=== PATIENT | female | born 1955 | race Caucasian/White ===

== ENCOUNTER 2017-08-02 08:45 | Day surgery (SDC) | payer BC, SELFPAY ==
--- NOTE | 2017-08-02 | PATH_ITS ---
[facility] Accession Number: [id number] . 01 Material submitted: . COLON POLYP AT 80CM . 02 Diagnosis: Biopsy, Colon Polyp At 80 CM: Tubular adenoma involving two biopsy fragments. [facility]/08/03/2017 . 02 Electronically signed: . Ernie Suarez MD, Pathologist NPI- [id number] . 01 Gross description: . Received in one formalin-filled container, labeled with the patient's name, labeled colon polyp at 80 cm, are three 0.2-0.3 cm portions of tissue, entirely submitted in one cassette. ([id number]) /FRR . 02 Pathologist provided ICD-10: D12.3 . 02 CPT . 981292 Performed at: 01 [facility] [address] [address], [place], [place] [id number] MD Aren Burns MD Phone: [phone] Performed at: 02 [facility] [address] [place], [place] [id number] MD Loco Farr MD Phone: [phone]
[2017-08-02 09:12] VITALS: BP 131/73; PULSE 60; RESP 20; TEMP 36.2; O2SAT 97
[2017-08-02] MEDS: SODIUM CHLORIDE 0.9% 1,000 ML 200 ML IV (09:45)
[2017-08-02] MEDS: ONDANSETRON 4 MG/2 ML INJ IV (10:35)
--- NOTE | 2017-08-02 10:56 | P.HP_ITS ---
History of Present Illness Date Patient Seen: 08/02/17 Time Patient Seen: 10:54 Chief complaint: [id number] COLONOSCOPY W/HEMORRHOID BANDING Narrative: Dunia is a very pleasant lady who is well known to me from prior visits. She has had some recent episodes of rectal bleeding that she attributes to a known history of hemorrhoids and rectal prolapse. Additionally , she has a history of colon polyps and it is time for her 5 year colonoscopy. Patient History Family & Social History Family History: Reviewed 08/02/17 by Mra Ferrell MD Social History: household members spouse Meds Home Medications Medication Instructions Recorded Confirmed Type ACETAMINOPHEN (#TYLENOL ARTHRITIS) 650 PO BID #0 05/31/12 History Fish Oil (#OMEGA-3) 2 tab PO QDAY #0 05/31/12 History OMEPRAZOLE 20 mg PO BID #0 05/31/12 History [VITAMIN C] #0 05/31/12 History [ZYRTEC] 10 mg PO QDAY #0 05/31/12 History doxazosin [Cardura] 8 mg PO Q DAY #0 05/31/12 History lisinopril 10 PO BID #0 05/31/12 History metoprolol tartrate [Lopressor] 50 mg PO BID #0 05/31/12 History naproxen sodium [Aleve] 220 mg PO PRN #0 05/31/12 History simvastatin [Zocor] 20 mg PO Q DAY #0 05/31/12 History promethazine-codeine 5 ml PO Q6HP PRN #0 12/15/15 History ondansetron [Zofran ODT] 4 mg SUBLINGUAL Q6HP PRN #20 odt 01/12/16 Rx oxycodone-acetaminophen [Percocet] 1 - 2 tab PO Q6HP PRN #30 tab 01/12/16 Rx diltiazem HCl 300 mg PO DAILY 08/02/17 08/02/17 History metformin 1,000 mg PO QAM 08/02/17 08/02/17 History metformin 1,500 mg PO BEDTIME 08/02/17 08/02/17 History rivaroxaban [Xarelto] 20 mg PO DAILY 08/02/17 08/02/17 History Allergies Allergy/AdvReac Type Severity Reaction Status Date / Time adhesive Allergy Severe ALLERGY TO Verified 08/02/17 09:47 TAPE PAPER/SILK TAPE OK fentanyl Allergy Severe VOMITING Verified 08/02/17 09:47 hydromorphone Allergy Severe VOMITING Verified 08/02/17 09:47 Sulfa (Sulfonamide Allergy Severe RASH Verified 08/02/17 09:47 Antibiotics) amoxicillin [From AUGMENTIN] AdvReac Severe DIARRHEA, Verified 08/02/17 09:47 SOB, RASH clavulanic acid AdvReac Mild DIARRHEA, Verified 08/02/17 09:47 [From AUGMENTIN] SHORTNESS OF BREATH piroxicam [From FELDENE] AdvReac Mild abd pain Verified 08/02/17 09:47 Review of Systems Review of Systems All systems reviewed & are unremarkable except as noted in HPI and below Exam Vital Signs (past 8 hours): Vital Signs - 8 hr 3 08/02/17 09:12 Temperature 97.1 F L Pulse Rate 60 Respiratory Rate 20 Blood Pressure 131/73 H Pulse Oximetry 97 Pulse Oximetry 97 Oxygen Delivery Method Room Air Narrative Exam Narrative: HEENT: Normocephalic and atraumatic, pupils equal round reactive to light accommodation with anicteric sclera Lungs: Clear bilaterally Heart: Regular rate and rhythm Abdomen: Soft, obese, active bowel sounds. Well-healed abdominal incisions Extremities: Warm and well perfused. 1+ edema bilaterally Assessment & Plan Plan: Assessment/Plan Narrative: We have discussed the risks and benefits of colonoscopy and the patient expressed desire to complete the procedure today
[2017-08-02] MEDS: MIDAZOLAM 5 MG/5 ML VIAL IV (11:17)
[2017-08-02] MEDS: fentaNYL 250 MCG/5 ML INJ IV (11:18)
--- NOTE | 2017-08-02 11:23 | PM.OP.1 ---
Operative Date/Time/Diagnoses - Date of procedure: 08/02/17 Time of procedure: 11:23 Pre-op diagnosis: Personal history of colon polyps Bleeding hemorrhoids Procedure & Clinicians Procedure: Colonoscopy to the cecum with polypectomy x1 Same procedure as scheduled: Yes Indications: Last colonoscopy 5 years ago Surgeon: Mar Ferrell Click Yes if Unassisted: Yes Anesthesia Type: Sedation (Versed 10 mg; fentanyl 200 mcg) Operative Notes Findings: 1. Adequate prep 2. 3 mm sessile polyp at 80 cm from the anal verge -removed with cold forceps and submitted for pathology 3. Diverticula from the junction of the sigmoid colon and rectum to approximately 50 cm from the anal verge 4. Grade 1 internal hemorrhoids 5. Full danelle of enlarged external hemorrhoids without thrombosis Closure Type: not applicable Specimen(s): none sent Estimated Blood Loss (mL): 1 Procedure in detail: After obtaining informed consent, the patient was brought to the GI suite and placed in the left lateral decubitus position on the examination table. After placement of appropriate monitors, the patient was given incremental doses of Versed and Fentanyl until an appropriate level of sedation was achieved. A time out was held per SCOAP protocol. A digital rectal examination was performed and did not reveal any masses or obstructing lesions. The colonoscope was gently passed into the patient's anus and the entire colon navigated to the level of the cecum with minimal difficulty. Once in the cecum, the scope was withdrawn being sure to go before and beyond all mucosal folds and prominences and get an excellent examination. The findings are noted above. At the level of the rectal vault, the scope was retroflexed and the internal anal canal was examined. The scope was straightened and air aspirated from the colon. The instrument was removed from the patient's body and the procedure was concluded. The patient was allowed to awaken from sedation without difficulty and taken to the post-anesthesia care unit in good condition. Total sedation time 24 min Total withdrawal time 12 min Complications: none Condition: stable Disposition: PACU Plan for aftercare: 1. Discharge to home 2. We will contact you with pathology results 3. Plan for next colonoscopy in 5 years or as clinically indicated
[2017-08-02 11:30] VITALS: BP 104/57; PULSE 60; RESP 20; TEMP 36; O2SAT 93
[2017-08-02 11:35] VITALS: BP 106/60; PULSE 65; RESP 22; O2SAT 95
[2017-08-02 11:41] VITALS: BP 113/68; PULSE 62; RESP 20; TEMP 36.3; O2SAT 95
[2017-08-02 11:52] VITALS: BP 126/72; PULSE 56; RESP 16; TEMP 36.1; O2SAT 92
== END 2017-08-02 12:20 | disposition home or self-care (01) ==
PROVIDERS: PCP Physician Assistant; Visit Provider Surgery
PROC: 0DJD8ZZ Inspection of Lower Intestinal Tract, Via Natural or Artificial Opening Endoscopic (ICD-10-PCS; CPT 45378; principal; 2017-08-02 09:45)
DX: Z12.11 Encounter for screening for malignant neoplasm of colon (principal); K64.0 First degree hemorrhoids; K57.30 Diverticulosis of large intestine without perforation or abscess without bleeding; K64.4 Residual hemorrhoidal skin tags; Z86.010 Personal history of colon polyps; D12.4 Benign neoplasm of descending colon
CPT/HCPCS: 45380; 99152; 99153; J2250; J2405; J3010

== ENCOUNTER → 2018-09-26 15:49 | Outpatient (CLI) | payer BC, SELFPAY ==
--- NOTE | 2018-09-26 | DI.RAD.S_ITS ---
PROCEDURE: XR SHOULDER RT MIN 2V INDICATIONS: RIGHT SHOULDER PAIN TECHNIQUE: 3 views of the shoulder were acquired. COMPARISON: [facility], , SHOULDER MINIMUM 2 VIEW LEFT, 11/28/2013, 11:08. FINDINGS: Bones: No fractures or dislocations. No suspicious bony lesions. Visualized ribs appear intact. Moderate AC joint degeneration. Glenohumeral spurring Soft tissues: No suspicious soft tissue calcifications. IMPRESSION: Degenerative changes as above. No fracture. If the patient's pain or other symptoms persist, consider further evaluation with MRI Dictated by: Erwin Martinez M.D. on 09/26/2018 at 16:56 Approved by: Erwin Martinez M.D. on 09/26/2018 at 16:57
== END ==
PROVIDERS: PCP Physician Assistant; Visit Provider Physician Assistant
DX: M25.511 Pain in right shoulder (principal); M19.011 Primary osteoarthritis, right shoulder
CPT/HCPCS: 73030

== ENCOUNTER → 2019-01-30 13:42 | Outpatient (CLI) | payer BC, SELFPAY | PROVIDERS: PCP Physician Assistant; Visit Provider Physician Assistant Medical | DX: E83.42 Hypomagnesemia (principal) | CPT/HCPCS: 36415; 83735 ==

== ENCOUNTER → 2019-02-19 13:15 | Outpatient (CLI) | payer BC, SELFPAY ==
[2019-02-19 15:17] LABS: Magnesium 1.4 mg/dL (1.6-2.3)
== END ==
PROVIDERS: Family Provider Physician Assistant; PCP Physician Assistant; Visit Provider Physician Assistant Medical
DX: E83.42 Hypomagnesemia (principal)
CPT/HCPCS: 36415; 83735

== ENCOUNTER → 2019-06-24 12:06 | Outpatient (CLI) | payer BC, SELFPAY ==
[2019-06-24 13:02] LABS: Magnesium 1.1 mg/dL (1.6-2.3)
[2019-06-25 10:03] LABS: Add Manual Diff / Slide Review NO; Basophils Absolute Auto 0 /uL (0-100); Basophils Percent Auto 0.4 % (0-2); Eosinophils Absolute Auto 200 /uL (0-450); Eosinophils Percent Auto 2.1 % (2-4); Hematocrit 40.9 % (36-46); Hemoglobin 13.3 g/dL (12.0-16.0); Lymphocytes Absolute Auto 3500 /uL (1100-4500); Lymphocytes Percent Auto 33.5 % (25-40); Mean Corpuscular HGB Conc 32.6 % (30-36); Mean Corpuscular Hemoglobin 29.1 PG (26-34); Mean Corpuscular Volume 89.1 fL (80-100); Monocytes Absolute Auto 800 /uL (0-900); Neutrophils Absolute Auto 5900 /uL (1500-7000); Platelet Count 208 X10^3/uL (150-400); Red Blood Cell Count 4.59 X10^6/uL (4.0-5.2); Red Cell Distribution Width 14.6 % (11.6-14.8); White Blood Cell Count 10.6 X10^3/uL (4.5-11.0)
[2019-06-25 10:05] LABS: Alanine Aminotransferase 39 IU/L (<35); Albumin 3.8 g/dL (3.5-5.0); Albumin Globulin Ratio 1.2 (1.0-2.8); Alkaline Phosphatase 128 U/L (38-126); Aspartate Aminotransferase 46 IU/L (14-36); BUN Creatinine Ratio 28.3 (6-22); Bilirubin Total 0.6 mg/dL (0.2-1.3); Blood Urea Nitrogen 15 mg/dL (7-17); Calcium 9.7 mg/dL (8.4-10.2); Carbon Dioxide 22 mmol/L (22-32); Chloride 101 mmol/L (98-107); Cholesterol 130 mg/dL (140-199); Estimated Glomerular Filt Rate > 60.0 mL/min (>60); Globulin 3.1 g/dL (1.7-4.1); Glucose 306 mg/dL (80-110); HDL Cholesterol 23 mg/dL (40-60); HEMOLYSIS < 15 (0-50); LDL Cholesterol Calculated 54 mg/dL (<100); Potassium 4.5 mmol/L (3.4-5.1); Sodium 137 mmol/L (137-145); Total Protein 6.9 g/dL (6.3-8.2); Triglycerides 267 mg/dL (35-150); Uric Acid 5.8 mg/dL (2.5-6.2)
== END ==
PROVIDERS: Family Provider Physician Assistant; PCP Physician Assistant; Referring Provider Physician Assistant Medical; Visit Provider Physician Assistant Medical
DX: E83.42 Hypomagnesemia (principal)
CPT/HCPCS: 36415; 80053; 80061; 83036; 83735; 84550; 85025

== ENCOUNTER → 2019-09-17 15:34 | Outpatient (CLI) | payer BC, SELFPAY ==
[2019-09-17 16:51] LABS: Hemoglobin A1C% w Est Avg Glu 12.2 % (4.0-6.0)
== END ==
PROVIDERS: Family Provider Physician Assistant; PCP Physician Assistant; Referring Provider Physician Assistant; Visit Provider Physician Assistant
DX: E11.9 Type 2 diabetes mellitus without complications (principal)
CPT/HCPCS: 36415; 83036

== ENCOUNTER → 2019-11-27 13:32 | Outpatient (CLI) | payer BC, SELFPAY ==
[2019-11-27 14:56] LABS: Hemoglobin A1C% w Est Avg Glu 11.7 % (4.0-6.0)
== END ==
PROVIDERS: Family Provider Physician Assistant; PCP Physician Assistant; Referring Provider Physician Assistant; Visit Provider Physician Assistant
DX: E11.9 Type 2 diabetes mellitus without complications (principal)
CPT/HCPCS: 36415; 83036

== ENCOUNTER → 2019-12-25 15:15 | Outpatient (CLI) | payer BC, SELFPAY ==
[2019-12-25 16:54] LABS: Creatinine Urine Random 75.6 mg/dL
[2019-12-25 16:58] LABS: Microalbumi Creatinin Ratio Ur 9.2 ug/mg CR (<30); Microalbumin Urine Random 0.7 mg/dL (0-1.6)
== END ==
PROVIDERS: Family Provider Physician Assistant; PCP Physician Assistant; Referring Provider Nurse Practitioner Family; Visit Provider Nurse Practitioner Family
DX: E11.65 Type 2 diabetes mellitus with hyperglycemia (principal)
CPT/HCPCS: 82043; 82570

== ENCOUNTER → 2020-01-10 12:57 | Outpatient (CLI) | payer BC, SELFPAY ==
[2020-01-10 13:21] LABS: Add Manual Diff / Slide Review NO; Basophils Absolute Auto 100 /uL (0-100); Basophils Percent Auto 0.9 % (0-2); Eosinophils Absolute Auto 200 /uL (0-450); Hematocrit 40.4 % (36-46); Hemoglobin 13.4 g/dL (12.0-16.0); Lymphocytes Absolute Auto 3700 /uL (1100-4500); Lymphocytes Percent Auto 37.3 % (25-40); Mean Corpuscular HGB Conc 33.2 % (30-36); Mean Corpuscular Hemoglobin 29.3 PG (26-34); Mean Corpuscular Volume 88.3 fL (80-100); Monocytes Absolute Auto 900 /uL (0-900); Neutrophils Absolute Auto 5100 /uL (1500-7000); Neutrophils Percent Auto 50.8 % (50-75); Platelet Count 215 X10^3/uL (150-400); Red Blood Cell Count 4.58 X10^6/uL (4.0-5.2)
[2020-01-10 13:28] LABS: Hemoglobin A1C% w Est Avg Glu 9.6 % (4.0-6.0)
[2020-01-10 13:43] LABS: Alanine Aminotransferase 33 IU/L (<35); Albumin 4.3 g/dL (3.5-5.0); Albumin Globulin Ratio 1.3 (1.0-2.8); Alkaline Phosphatase 99 U/L (38-126); Aspartate Aminotransferase 36 IU/L (14-36); BUN Creatinine Ratio 23.7 (6-22); Bilirubin Total 0.5 mg/dL (0.2-1.3); Blood Urea Nitrogen 14 mg/dL (7-17); Calcium 9.6 mg/dL (8.4-10.2); Carbon Dioxide 26 mmol/L (22-32); Chloride 104 mmol/L (98-107); Cholesterol 114 mg/dL (140-199); Estimated Glomerular Filt Rate > 60.0 mL/min (>60); Globulin 3.3 g/dL (1.7-4.1); Glucose 134 mg/dL (80-110); HDL Cholesterol 25 mg/dL (40-60); HEMOLYSIS < 15 (0-50); LDL Cholesterol Calculated 39 mg/dL (<100); Magnesium 1.4 mg/dL (1.6-2.3); Potassium 4.4 mmol/L (3.4-5.1); Sodium 138 mmol/L (137-145); Total Protein 7.6 g/dL (6.3-8.2); Triglycerides 251 mg/dL (35-150)
== END ==
PROVIDERS: Family Provider Physician Assistant; PCP Physician Assistant; Referring Provider Physician Assistant; Visit Provider Physician Assistant
DX: E11.9 Type 2 diabetes mellitus without complications (principal)
CPT/HCPCS: 36415; 80053; 80061; 83036; 83735; 85025

== ENCOUNTER → 2020-05-20 14:38 | Outpatient (CLI) | payer BC, SELFPAY ==
[2020-05-20 16:06] LABS: Add Manual Diff / Slide Review NO; Basophils Absolute Auto 0 /uL (0-100); Basophils Percent Auto 0.4 % (0-2); Eosinophils Absolute Auto 300 /uL (0-450); Eosinophils Percent Auto 3.2 % (2-4); Hematocrit 40.6 % (36-46); Hemoglobin 13.3 g/dL (12.0-16.0); Lymphocytes Absolute Auto 4200 /uL (1100-4500); Lymphocytes Percent Auto 44.9 % (25-40); Mean Corpuscular HGB Conc 32.8 % (30-36); Mean Corpuscular Volume 88.5 fL (80-100); Monocytes Absolute Auto 800 /uL (0-900); Monocytes Percent Auto 8.7 % (3-14); Neutrophils Absolute Auto 4000 /uL (1500-7000); Neutrophils Percent Auto 42.8 % (50-75); Platelet Count 224 X10^3/uL (150-400); Red Blood Cell Count 4.59 X10^6/uL (4.0-5.2); Red Cell Distribution Width 14.5 % (11.6-14.8); White Blood Cell Count 9.3 X10^3/uL (4.5-11.0)
[2020-05-20 16:36] LABS: Alanine Aminotransferase 25 IU/L (<35); Albumin 4.2 g/dL (3.5-5.0); Albumin Globulin Ratio 1.4 (1.0-2.8); Alkaline Phosphatase 99 U/L (38-126); Aspartate Aminotransferase 31 IU/L (14-36); BUN Creatinine Ratio 29.4 (6-22); Bilirubin Total 0.2 mg/dL (0.2-1.3); Blood Urea Nitrogen 20 mg/dL (7-17); Calcium 9.5 mg/dL (8.4-10.2); Carbon Dioxide 26 mmol/L (22-32); Chloride 106 mmol/L (98-107); Estimated Glomerular Filt Rate > 60.0 mL/min (>60); Globulin 3.1 g/dL (1.7-4.1); Glucose 118 mg/dL (80-110); HEMOLYSIS < 15 (0-50); Magnesium 1.4 mg/dL (1.6-2.3); Potassium 4.6 mmol/L (3.4-5.1); Sodium 141 mmol/L (137-145); Total Protein 7.3 g/dL (6.3-8.2)
[2020-05-21 06:41] LABS: Cancer Antigen 27.29 11.5 U/mL (0.0-38.6)
== END ==
PROVIDERS: Family Provider Physician Assistant; PCP Physician Assistant; Referring Provider Physician Assistant; Visit Provider Physician Assistant
DX: E11.69 Type 2 diabetes mellitus with other specified complication (principal); I10 Essential (primary) hypertension; G47.33 Obstructive sleep apnea (adult) (pediatric); E78.5 Hyperlipidemia, unspecified; I48.91 Unspecified atrial fibrillation; Z85.3 Personal history of malignant neoplasm of breast; E83.42 Hypomagnesemia
CPT/HCPCS: 80053; 83735; 85025; 86300

== ENCOUNTER → 2020-05-22 12:52 | Outpatient (CLI) | payer BC, SELFPAY ==
--- NOTE | 2020-05-22 | DI.RAD.S_ITS ---
PROCEDURE: XR CHEST 2V INDICATIONS: personal hx of breast cancer TECHNIQUE: 2 views of the chest were acquired. COMPARISON: [facility], CHEST 2 VIEW, 10/28/2008, 12:56. [facility], CHEST 2 VIEW, 12/24/2015, 12:16. FINDINGS: Surgical changes and devices: None. Lungs and pleura: Lungs are clear. No pleural effusions or pneumothorax. Mediastinum: Mediastinal contours are normal. Heart size is normal. Bones and chest wall: No suspicious bony abnormalities. Soft tissues appear unremarkable. IMPRESSION: No acute cardiopulmonary process demonstrated radiographically. Dictated by: Tommy Jerry M.D. on 05/22/2020 at 13:46 Approved by: Tommy Jerry M.D. on 05/22/2020 at 13:48
== END ==
PROVIDERS: Family Provider Physician Assistant; PCP Physician Assistant; Referring Provider Physician Assistant; Visit Provider Physician Assistant
DX: Z85.3 Personal history of malignant neoplasm of breast (principal)
CPT/HCPCS: 71046

== ENCOUNTER → 2020-07-22 12:18 | Outpatient (CLI) | payer BC, SELFPAY ==
[2020-07-22 15:00] LABS: Blood Urea Nitrogen 12 mg/dL (7-17); Calcium 9.9 mg/dL (8.4-10.2); Carbon Dioxide 24 mmol/L (22-32); Chloride 105 mmol/L (98-107); Estimated Glomerular Filt Rate > 60.0 mL/min (>60); Glucose 114 mg/dL (80-110); HEMOLYSIS < 15 (0-50); Magnesium 1.4 mg/dL (1.6-2.3); Potassium 4.6 mmol/L (3.4-5.1); Sodium 141 mmol/L (137-145)
== END ==
PROVIDERS: Family Provider Physician Assistant; PCP Physician Assistant; Referring Provider Internal Medicine Cardiovascular Disease; Visit Provider Internal Medicine Cardiovascular Disease
DX: I48.11 Longstanding persistent atrial fibrillation (principal); E83.42 Hypomagnesemia
CPT/HCPCS: 36415; 80048; 83735

== ENCOUNTER → 2020-10-20 08:21 | Outpatient (CLI) | payer BC, SELFPAY ==
[2020-10-20 10:18] LABS: Hemoglobin A1C% w Est Avg Glu 5.9 % (4.0-6.0)
[2020-10-20 11:24] LABS: Alanine Aminotransferase 22 IU/L (<35); Albumin Globulin Ratio 1.5 (1.0-2.8); Alkaline Phosphatase 86 U/L (38-126); Aspartate Aminotransferase 25 IU/L (14-36); BUN Creatinine Ratio 23.9 (6-22); Bilirubin Total 0.6 mg/dL (0.2-1.3); Blood Urea Nitrogen 16 mg/dL (7-17); Calcium 9.8 mg/dL (8.4-10.2); Carbon Dioxide 25 mmol/L (22-32); Chloride 105 mmol/L (98-107); Cholesterol 101 mg/dL (140-199); Estimated Glomerular Filt Rate > 60.0 mL/min (>60); Globulin 2.7 g/dL (1.7-4.1); Glucose 102 mg/dL (80-110); HDL Cholesterol 28 mg/dL (40-60); HEMOLYSIS < 15 (0-50); LDL Cholesterol Calculated 38 mg/dL (<100); Potassium 4.3 mmol/L (3.4-5.1); Sodium 140 mmol/L (137-145); Total Protein 6.7 g/dL (6.3-8.2); Triglycerides 176 mg/dL (35-150)
== END ==
PROVIDERS: Family Provider Physician Assistant; PCP Physician Assistant; Referring Provider Internal Medicine Endocrinology, Diabetes & Metabolism; Visit Provider Internal Medicine Endocrinology, Diabetes & Metabolism
DX: E11.65 Type 2 diabetes mellitus with hyperglycemia (principal)
CPT/HCPCS: 36415; 80053; 80061; 83036

== ENCOUNTER → 2021-03-22 11:36 | Outpatient (CLI) | payer BC, SELFPAY ==
[2021-03-22 14:57] LABS: Creatinine Urine Random 70.6 mg/dL
[2021-03-22 15:02] LABS: Microalbumi Creatinin Ratio Ur 14.1 ug/mg CR (<30)
== END ==
PROVIDERS: Family Provider Physician Assistant; PCP Physician Assistant; Referring Provider Nurse Practitioner Family; Visit Provider Nurse Practitioner Family
DX: E11.9 Type 2 diabetes mellitus without complications (principal); Z79.4 Long term (current) use of insulin
CPT/HCPCS: 82043; 82570